=== PATIENT | female | born 1960 | race Caucasian/White ===

== ENCOUNTER → 2018-10-29 | Outpatient (REF) | payer OTHER, MEDICAID ==
[2018-10-29 18:02] LABS: CREATININE, URINE 62.2 MG/DL; CREATININE,RANDOM URINE 62.2 MG/DL; MALB URINE SIEMENS 8.8 MG/L; MAU/CREAT RATIO 14.1 MCG/MG (0.0-30.0)
== END ==
LOC: M LAB REF 16:18
PROVIDERS: ATTEND Internal Medicine
DX: E11.9 Type 2 diabetes mellitus without complications (principal)

== ENCOUNTER 2018-11-06 13:43 | Outpatient (RCR) | payer OTHER, MEDICAID | END 2018-11-21 | LOC: M OT 13:43 | PROVIDERS: ATTEND Internal Medicine | DX: G61.0 Guillain-Barre syndrome (principal) ==

== ENCOUNTER → 2019-08-08 | Outpatient (REF) | payer OTHER, MEDICAID | LOC: M LAB REF 16:18 | PROVIDERS: ATTEND Internal Medicine | DX: N39.0 Urinary tract infection, site not specified (principal) ==

== ENCOUNTER → 2020-05-07 | Outpatient (REF) | payer MEDICARE, OTHER, MEDICAID | LOC: M LAB REF 12:23 | PROVIDERS: ATTEND Internal Medicine | DX: N39.0 Urinary tract infection, site not specified (principal) ==

== ENCOUNTER → 2020-09-08 | Outpatient (REF) | payer MEDICARE, OTHER, MEDICAID | LOC: M LAB REF 16:20 | PROVIDERS: ATTEND Internal Medicine | DX: N39.0 Urinary tract infection, site not specified (principal) ==

== ENCOUNTER → 2021-06-07 | Outpatient (REF) | payer MEDICARE, OTHER, MEDICAID ==
[2021-06-07 16:26] LABS: BACTERIA, URINE AUTO 1+ (NEGATIVE); MUCUS, URINE SMALL (NEGATIVE); RBC, URINE AUTO 1 /HPF (0-3); SQUAMOUS EPITHELIAL CELL UR AU 7 /HPF (0-6); WBC, URINE AUTO 82 /HPF (0-3)
== END ==
LOC: M LAB REF 16:09
PROVIDERS: ATTEND Internal Medicine
DX: R31.9 Hematuria, unspecified (principal)

== ENCOUNTER → 2021-06-23 | Outpatient (CLI) | payer MEDICARE, OTHER | LOC: M RAD 12:02 | PROVIDERS: ATTEND Internal Medicine | DX: N30.20 Other chronic cystitis without hematuria (principal); Z87.440 Personal history of urinary (tract) infections; N32.89 Other specified disorders of bladder ==

== ENCOUNTER → 2021-07-19 | Outpatient (REF) | payer MEDICARE, OTHER ==
[2021-07-19 12:46] LABS: APPEARANCE, URINE HAZY (CLEAR); BACTERIA, URINE AUTO 1+ (NEGATIVE); BILIRUBIN, URINE AUTO NEGATIVE (NEGATIVE); BLOOD, URINE BLOOD 1+ (NEGATIVE); COLOR, URINE YELLOW (YELLOW); GLUCOSE, URINE (UA) AUTO NEGATIVE (NEGATIVE); KETONE, URINE AUTO NEGATIVE (NEGATIVE); LEUKOCYTE ESTERASE, URINE AUTO 3+ (NEGATIVE); NITRITE, URINE AUTO NEGATIVE (NEGATIVE); PROTEIN, URINE AUTO NEGATIVE (NEGATIVE); RBC, URINE AUTO 35 /HPF (0-3); SPECIFIC GRAVITY URINE AUTO 1.013 (1.002-1.035); SQUAMOUS EPITHELIAL CELL UR AU 4 /HPF (0-6); UROBILINOGEN, URINE AUTO 0.2 mg/dL (0.0-2.0); WBC, URINE AUTO 94 /HPF (0-3)
== END ==
LOC: M LAB REF 12:06
PROVIDERS: ATTEND Internal Medicine
DX: N21.0 Calculus in bladder (principal)

== ENCOUNTER → 2022-07-12 | Outpatient (REF) | payer MEDICARE, OTHER | LOC: M LAB REF 16:32 | PROVIDERS: ATTEND Internal Medicine | DX: G61.0 Guillain-Barre syndrome (principal); R80.9 Proteinuria, unspecified ==

== ENCOUNTER → 2023-03-08 | Day surgery (SDC) | payer MEDICARE, OTHER ==
[~2023-03-08] VITALS: Ht 144.8 cm; Wt 62.1 kg
[~2023-03-08] MED LIST: METF-817 PO; NS 1,000 ML IV ONE; propofoL 200 MG/20 ML VIAL As Ordered ONE
[2023-03-08 10:53] VITALS: TEMP 97.6
[2023-03-08 11:17] VITALS: BP 139/83; O2SAT 100
== END | disposition home or self-care (01) ==
LOC: M OPP 09:00
PROVIDERS: ATTEND Internal Medicine Gastroenterology
DX: K64.0 First degree hemorrhoids (principal); D12.3 Benign neoplasm of transverse colon; K57.30 Diverticulosis of large intestine without perforation or abscess without bleeding; F41.9 Anxiety disorder, unspecified; R06.02 Shortness of breath; Z12.11 Encounter for screening for malignant neoplasm of colon; Z79.84 Long term (current) use of oral hypoglycemic drugs

== ENCOUNTER → 2023-12-11 | Outpatient (REF) | payer MEDICARE, OTHER ==
[~2023-12-11] MED LIST changes: -NS 1,000 ML IV ONE; -propofoL 200 MG/20 ML VIAL As Ordered ONE
[2023-12-11 12:40] LABS: C REACTIVE PROTEIN QUANTITATIV < 0.40 MG/DL (<1.0); CORTISOL AM 14.2 UG/DL (4.3-22.4)
[2023-12-11 12:44] LABS: VITAMIN B12 LEVEL 591 PG/ML (211-911)
[2023-12-12 13:26] LABS: EBV AB TO NUCLEAR ANTIGEN > 600.00 U/mL (<18.00); EBV VIRAL CAPSID AG IGG > 750.00 U/mL (<18.00); EBV VIRAL CAPSID AG IGM < 36.00 U/mL (<36.00)
[2023-12-12 14:17] LABS: SSA SJOGRENS A <1.0 NEG AI (<1.0 NEG); SSB SJOGRENS B <1.0 NEG AI (<1.0 NEG)
== END ==
LOC: M LAB REF 11:39
PROVIDERS: ATTEND Internal Medicine
DX: G61.0 Guillain-Barre syndrome (principal); R53.83 Other fatigue

== ENCOUNTER → 2024-11-22 | Outpatient (REF) | payer MEDICARE, OTHER ==
[~2024-11-22] MED LIST changes: +METF-1156 PO; -METF-817 PO
[2024-11-22 13:21] LABS: APPEARANCE, URINE CLEAR (CLEAR); BACTERIA, URINE AUTO NEGATIVE (NEGATIVE); BILIRUBIN, URINE AUTO NEGATIVE (NEGATIVE); BLOOD, URINE BLOOD NEGATIVE (NEGATIVE); GLUCOSE, URINE (UA) AUTO NEGATIVE (NEGATIVE); KETONE, URINE AUTO NEGATIVE (NEGATIVE); LEUKOCYTE ESTERASE, URINE AUTO TRACE (NEGATIVE); MUCUS, URINE SMALL (NEGATIVE); NITRITE, URINE AUTO NEGATIVE (NEGATIVE); PROTEIN, URINE AUTO NEGATIVE (NEGATIVE); RBC, URINE AUTO 0 /HPF (0-3); SPECIFIC GRAVITY URINE AUTO 1.009 (1.002-1.035); SQUAMOUS EPITHELIAL CELL UR AU 1 /HPF (0-6); UROBILINOGEN, URINE AUTO 0.2 mg/dL (0.0-2.0); WBC, URINE AUTO 1 /HPF (0-3)
== END ==
LOC: M SMT 12:46
PROVIDERS: ATTEND Nurse Practitioner Family
DX: Z87.440 Personal history of urinary (tract) infections (principal); Z79.899 Other long term (current) drug therapy

== ENCOUNTER → 2024-12-26 | Outpatient (CLI) | payer MEDICARE, OTHER | LOC: M RAD 10:12 | PROVIDERS: ATTEND Nurse Practitioner Family | DX: Z87.448 Personal history of other diseases of urinary system (principal) ==